=== PATIENT | female | born 1995 | race Caucasian/White ===

== ENCOUNTER 2020-05-11 00:03 | Emergency (ER) | payer OTHER ==
[~2020-05-11] VITALS: Ht 160 cm; Wt 99.8 kg
[2020-05-11 00:05] VITALS: BP_SYST 160
--- NOTE | 2020-05-11 00:46 | NUR ---
Patient to ER bed 3 to gown for evaluation. Side rails up. Report given to CRISTIAN HUNG.
--- NOTE | 2020-05-11 00:49 | NUR ---
Note casimiroone in EDM - 05/11/20 at 0259 by [email or web address] PAtient complaining of left lower quadrant pain starting yesterday and worsening. Patient reports that it feels like its stabbing. Pain 0/10. Denies any nausea and vomiting. No other complaints/injuries per patient or as noted. Will continue to monitor
--- NOTE | 2020-05-11 00:49 | NUR ---
PAtient complaining of left lower quadrant pain starting yesterday and worsening. Patient reports that it feels like its stabbing. Pain 6/10. Denies any nausea and vomiting. No other complaints/injuries per patient or as noted. Will continue to monitor
--- NOTE | 2020-05-11 00:50 | NUR ---
ER at bedside examining patient.
[2020-05-11] MEDS ORDERED: KETOROLAC TROMETHAMINE 60 MG/2 ML VIAL IM ONE (01:00)
--- NOTE | 2020-05-11 01:12 | NUR ---
Note hanane in EDM - 05/11/20 at 0300 by [email or web address] Patient reports that her pain is relieved. Pain 0/10. Patient in position of comfort. Voiced no complaints. Will continue to monitor.
--- NOTE | 2020-05-11 01:30 | NUR ---
Patient reports that her pain is relieved. Pain 0/10. Patient in position of comfort. Voiced no complaints. Will continue to monitor.
--- NOTE | 2020-05-11 01:33 | NUR ---
in trudy, resting. no distress noted. VSS
[2020-05-11 02:24] VITALS: BP_SYST 160
--- NOTE | 2020-05-11 02:25 | NUR ---
Patient given written and verbal discharge instructions and verbalizes understanding. ER MD Dr. Marinelli discussed with patient the results and treatment provided. Patient in stable condition. ID arm band removed. Rx of mineral oil, motrin given. Patient educated on pain management and to follow up with PMD. Pain Scale 5/10. Opportunity for questions provided and answered. Medication side effect fact sheet provided.
--- NOTE | 2020-05-11 02:57 | NUR ---
upon discharge pt understood aftercare instructions and appologized for mother being "overbearing". that she will follow up with her primary provider at [facility] for further symptoms.
== END 2020-05-11 02:22 | disposition home or self-care (01) ==
LOC: SED 00:03
DX: K59.00 Constipation, unspecified (principal)
CPT/HCPCS: 74018; 81002; 81025; 96372; 99283; J1885